=== PATIENT | female | born 1990 | race Two or more races ===

== ENCOUNTER 2019-09-03 07:56 | Inpatient (IN) | payer BC, MEDICAID ==
[2019-09-03] MEDS ORDERED: OXYTOCIN/0.9 % SODIUM CHLORIDE 30 UNIT/500 ML RTUINJ IV PRN ×2 (08:18→18:25)
[2019-09-03] MEDS ORDERED: PENICILLIN G POTASSIUM 5,000,000 UNIT in DEXTROSE 5%-WATER 100 ML IV ONE (08:18)
[2019-09-03] MEDS ORDERED: MISOPROSTOL 0.2 MG TABLET ONE ×2 (08:27→08:39)
[2019-09-03] MEDS ORDERED: PENICILLIN G-K 5 MILLION UNIT VIAL ONE (08:27)
[2019-09-03] MEDS ORDERED: LIDOCAINE 1% INJ-PF (10 MG/ML) 30 ML SDV ONE ×2 (08:27→08:39)
[2019-09-03] MEDS ORDERED: OXYTOCIN 10 UNIT/ML VIAL ONE ×2 (08:27→08:39)
[2019-09-03] MEDS ORDERED: OXYTOCIN/0.9 % SODIUM CHLORIDE 0 UNIT/0 ML RTUINJ ONE (08:27)
[2019-09-03] MEDS ORDERED: OXYTOCIN/0.9 % SODIUM CHLORIDE 30 UNIT/500 ML RTUINJ ONE (08:39)
[2019-09-03] MEDS: RINGERS SOLUTION,LACTATED 1,000 ML IV PRN ×3 (08:40→17:13)
--- NOTE | 2019-09-03 08:43 | Admission Physical ---
Datetime Report Generated by CPN: 09/03/2019 08:43 CURRENT ADMISSION Hx Assessment: The History has been Reviewed and is Current Chief Complaint: Scheduled Induction of Labor Indication for Induction: Maternal Diabetes Indication for Induction- Other: GDM-A2 Admit Impression : Term, Intrauterine ; Induction of Labor Admit Plan: Admit to Unit; Initiate Labor Protocol ALLERGIES Medication Allergies: No Known Allergies (09/03/2019) OBSTETRICAL HISTORY EDC: 09/05/2019 00:00 : 3 Para: 2 Term: 2 : 0 SAB: 0 IAB: 0 Ectopic: 0 Livin Cesareans: 0 VBACs: 0 Multiple Births: 0 PHYSICAL EXAM General: Normal Heart: Normal Lungs: Normal Abdomen: Normal Extremities: Normal Pelvic Type: Adequate Physical Exam Comments: proven to >8lbs Vital Signs: Reviewed; Within Normal Limits VAGINAL EXAM Contraction Comments: x1 MEMBRANES Membranes: Intact FETUS A EGA: 39.5 Monitoring: External US Variability: Moderate 6-25bpm Decelerations: None Presentation: Vertex Admit Comment: 29yo @ 39w5d into L_D this AM secondary to GDM-A2. Pt is O pos, Rubella non-immune, GBS pos with complicated by GDM-A2. Plan is to start pitocin for IOL and PCN for GBS prophylaxis with AROM after second dose of antibiotic. Pt with hx of rapid deliveries. Dr. Hall is the OB construction site crossing guard today and aware of Induction. INFORMED CONSENT Assignment: Alen Hall MD Signature: with User ID: [email or web address] : with User ID: [email or web address]
[2019-09-03 08:55] LABS: APPEARANCE,URINE CLOUDY; BILIRUBIN,URINE NEGATIVE (NEGATIVE); COLOR,URINE YELLOW; GLUCOSE, URINE NEGATIVE (NEGATIVE); KETONES,URINE NEGATIVE (NEGATIVE); LEUKOCYTE ESTERASE,URINE MODERATE (NEGATIVE); NITRITE,URINE NEGATIVE (NEGATIVE); PROTEIN,URINE NEGATIVE (NEGATIVE); URINE SPECIFIC GRAVITY 1.012; UROBILINOGEN,URINE NEGATIVE mg/dL (<2.0)
[2019-09-03 09:19] LABS: ABSOLUTE EOSINOPHILS # (AUTO) 0.3 10^3/uL (0.0-0.6); ABSOLUTE LYMPHOCYTES (AUTO) 1.2 10^3/uL (0.5-4.7); ABSOLUTE MONOCYTES (AUTO) 0.4 10^3/uL (0.1-1.4); ABSOLUTE NEUT (AUTO) 5.2 10^3/uL (1.7-8.2); BASOPHILS % (AUTO) 0.3 % (0-2); EOSINOPHILS % (AUTO) 4.8 % (0-6); HEMATOCRIT 35.2 % (36.0-47.0); HEMOGLOBIN 12.4 g/dL (12.0-15.5); LYMPHOCYTES % (AUTO) 16.9 % (13-45); MEAN CORPUSCULAR HEMOGLOBIN 31.9 pg (27.0-33.4); MEAN CORPUSCULAR HGB CONC 35.1 g/dL (32.0-36.0); MEAN CORPUSCULAR VOLUME 91 fl (80-97); MONOCYTES % (AUTO) 5.9 % (3-13); PLATELET COUNT 239 10^3/uL (150-450); RED BLOOD COUNT 3.88 10^6/uL (3.72-5.28); RED CELL DISTRIBUTION WIDTH 12.4 % (11.5-14.0); SEGMENTED NEUTROPHILS % (AUTO) 72.1 % (42-78); TOTAL CELLS COUNTED % (AUTO) 100 %; WHITE BLOOD COUNT 7.1 10^3/uL (4.0-10.5)
[2019-09-03] MEDS: PENICILLIN G POTASSIUM 2,500,000 UNIT in DEXTROSE 5%-WATER 50 ML IV SCH ×2 (12:30→16:37)
[2019-09-03] MEDS ORDERED: NALBUPHINE HCL INJ 10 MG/1 ML AMPULE ONE (16:27)
[2019-09-03] MEDS ORDERED: PROMETHAZINE HCL INJ 25 MG/1 ML VIAL ONE (16:27)
[2019-09-03] MEDS ORDERED: PROMETHAZINE HCL INJ 25 MG/1 ML VIAL IV ONE (17:00)
[2019-09-03] MEDS ORDERED: NALBUPHINE HCL INJ 10 MG/1 ML AMPULE IV ONE (17:00)
[2019-09-03] MEDS ORDERED: ZOLPIDEM TARTRATE 5 MG TABLET PO PRN (18:25)
[2019-09-03] MEDS ORDERED: PSEUDOEPHEDRINE HCL 30 MG TABLET PO PRN (18:25)
[2019-09-03] MEDS ORDERED: ACETAMINOPHEN WITH CODEINE #3 TABLET PO PRN (18:25)
[2019-09-03] MEDS ORDERED: BENZOCAINE/MENTHOL AEROSOL SPRAY 56 ML TOP PRN (18:25)
[2019-09-03] MEDS ORDERED: PROMETHAZINE HCL INJ 25 MG/1 ML VIAL IV PRN (18:25)
[2019-09-03] MEDS ORDERED: MEASLES,MUMPS&RUBELLA VACC/PF 0.5 ML VIAL SUBCUT PRN (18:25)
[2019-09-03] MEDS ORDERED: DIBUCAINE 1% OINTMENT 28 GM TP PRN (18:25)
[2019-09-03] MEDS ORDERED: DIPH/PERTUSS(ACELL)/TETANUS VAC/PF 0.5 ML SYR (>=10YO) IM PRN (18:25)
[2019-09-03] MEDS ORDERED: PROMETHAZINE HCL 25 MG TABLET PO PRN (18:25)
[2019-09-03] MEDS ORDERED: GLYCERIN/WITCH HAZEL LEAF 1 EACH MED..WIPE TP PRN (18:25)
[2019-09-03] MEDS ORDERED: PROMETHAZINE HCL 25 MG SUPP.RECT PR PRN (18:25)
[2019-09-03] MEDS ORDERED: DIPHENHYDRAMINE HCL 25 MG CAPSULE PO PRN (18:25)
[2019-09-03] MEDS ORDERED: ACETAMINOPHEN 650 MG SUPP.RECT PR PRN (18:25)
[2019-09-03] MEDS ORDERED: MAGNESIUM HYDROXIDE SUSP 30 ML UDCUP PO PRN (18:25)
[2019-09-03] MEDS ORDERED: NA PHOS,M-B/NA PHOS,DI-BA (ADULT) 133 ML ENEMA PR PRN (18:25)
--- NOTE | 2019-09-03 18:46 | Warning Signs in Babies ---
VOD Warning Signs Datetime Report Generated by [facility]: 09/03/2019 18:46 VOD#608 -Warning Signs in Babies: Viewed with Parent(s)/Family (09/03/2019 08:18:Myra Rasmussen RN)
--- NOTE | 2019-09-03 18:48 | Delivery Summary ---
Del Sum A-C Datetime Report Generated by CPN: 09/03/2019 18:47 DELIVERY PERSONNEL DELIVERY PERSONNEL: [id number] Delivery Doctor:: Alen Hall MD Labor and Delivery Nurse:: Myra Rasmussen RNdirectional driller Nurse:: Génesis Lugo RN Nursery Nurse:: Jamila Rea RN Nursery Nurse:: Yasmin Obregon RN Ruling Machine Feeder/SUPERVISOR JEWELRY DEPARTMENT: Karli Roberts, ST MATERNAL INFORMATION Delivery Anesthesia: Epidural Medications After Delivery: Pitocin Bolus-Please Comment; Pitocin 30 Units in 500ml NS/D5W Delivery QBL: 200 Maternal Complications: None LABOR SUMMARY EDC: 09/05/2019 00:00 No. Babies in Womb: 1 Attempted: No Labor Anesthesia: IV Sedation LABOR INFORMATION Reason for Induction: Maternal Diabetes Onset of Labor: 09/03/2019 14:59 Complete Dilatation: 09/03/2019 18:58 Oxytocin: Induction Group B Beta Strep: POSITIVE Antibiotics # of Doses: 3 Antibiotics Time of Last Dose: 1637 Name of Antibiotic Given: penicillin Steroids Given: None Reason Steroids Not Administered: Not Applicable MEMBRANES Membranes Rupture Method: Artificial Rupture of Membranes: 09/03/2019 14:59 Length of Rupture (hr): 3.03 Amniotic Fluid Color: Clear Amniotic Fluid Amount: Small Amniotic Fluid Odor: None STAGES OF LABOR Stage 1 hr: 3 Stage 1 min: 59 Stage 2 hr: 0 Stage 2 min: -57 Stage 3 hr: 0 Stage 3 min: 6 Total Time in Labor hr: 3 Total Time in Labor min: 8 VAGINAL DELIVERY Episiotomy: None Laceration #1: None Laceration Extension #1: N/A Laceration Repair: Not Applicable Sponge Count Correct: N/A Sharps Count Correct: N/A CSECTION DELIVERY Primary Indication: N/A Secondary Indication: N/A CSection Incidence: N/A Labor: N/A Elective: N/A CSection Incision: N/A BABY A INFORMATION Infant Delivery Date/Time: 09/03/2019 18:01 Method of Delivery: Vaginal Nurse Controlled Delivery: Yes Born in Route : No : N/A Forceps: N/A Vacuum Extraction: N/A Shoulder Dystocia : No PRESENTATION/POSITION BABY A Presentation: Cephalic Cephalic Presentation: Vertex Vertex Position: Left Occipital Anterior Breech Presentation: N/A PLACENTA INFORMATION BABY A Placenta Delivery Time : 09/03/2019 18:07 Placenta Method of Delivery: Spontaneous Placenta Status: Delivered SCORES BABY A Heart Rate 1 min: >100 bpm Resp Effort 1 min: Good Cry Reflex Irritability 1 min: Cough or Sneeze or Pulls Away Muscle Tone 1 min: Active Motion Color 1 min: Body [place], Extremities Blue Resuscitation Effort 1 min: Tactile Stimulation SCORE 1 MIN: 9 Heart Rate 5 min: >100 bpm Resp Effort 5 min: Good Cry Reflex Irritability 5 min: Cough or Sneeze or Pulls Away Muscle Tone 5 min: Active Motion Color 5 min: Body [place], Extremities Blue Resuscitation Effort 5 min: Tactile Stimulation SCORE 5 MIN: 9 INFANT INFORMATION BABY A Gestational Age at Delivery: 39.5 Gestational Status: Full Term- 39- 40.6 Weeks Infant Outcome : Liveborn Condition : Stable Infant Sex: Female IDENTIFICATION BABY A Infant Verification Date/Time: 09/03/2019 18:37 ID Band Number: [id number] Mother's Name Verified: Yes RN Verifying : MMobley RN Ttwigg, RN WEIGHT/LENGTH BABY A Infant Birthweight (gm): 3179 Infant Weight (lb): 7 Infant Weight (oz): 0 Length (in): 19.50 Length (cm): 49.53 CORD INFORMATION BABY A No. Cord Vessels: 3 Nuchal Cord : N/A Cord Blood Taken: Yes-For Eval (Mom's Blood Type - or O+) Suction: None ASSESSMENT BABY A Complications: None Physical Findings at Delivery: Within Normal Limits Respirations: Appears Normal Skin to Skin: Yes Skin to Skin Time (min): 20 Store Sales Manager/ALS Called : No Infant Care By: Rk Rea RN Transferred To: Remains with Mother BABY B INFORMATION : N/A SIGNATURES Signature: with User ID: [email or web address]
[2019-09-03] MEDS ORDERED: MISOPROSTOL 0.2 MG TABLET PR ONE (18:54)
[2019-09-03] MEDS ORDERED: IBUPROFEN 800 MG TABLET ONE (19:33)
[2019-09-04] MEDS: FAMOTIDINE 20 MG TABLET PO SCH ×3 (02:49→23:11)
[2019-09-04] MEDS: IBUPROFEN 800 MG TABLET PO SCH ×4 (02:51→23:11)
[2019-09-04 07:06] LABS: HEMATOCRIT 35.1 % (36.0-47.0); HEMOGLOBIN 12.3 g/dL (12.0-15.5); MEAN CORPUSCULAR HGB CONC 35.1 g/dL (32.0-36.0); MEAN CORPUSCULAR VOLUME 91 fl (80-97); PLATELET COUNT 249 10^3/uL (150-450); RED BLOOD COUNT 3.85 10^6/uL (3.72-5.28); RED CELL DISTRIBUTION WIDTH 12.4 % (11.5-14.0); WHITE BLOOD COUNT 13.4 10^3/uL (4.0-10.5)
[2019-09-04] MEDS: PRENATAL VITAMIN W DHA CAPSULE PO SCH (09:16)
[2019-09-04] MEDS: FERROUS SULFATE 325 MG TABLET PO SCH ×2 (09:16→17:16)
[2019-09-04] MEDS: SENNOSIDES/DOCUSATE 8.6-50 MG 1 EACH TABLET PO SCH (09:16)
[2019-09-04] MEDS: DOCUSATE SODIUM 100 MG CAPSULE PO SCH ×2 (09:16→17:16)
--- NOTE | 2019-09-04 10:08 | PDOC PROGRESS REPORT ---
Subjective-OB Progress Note for:: 09/04/19 Subjective: Pt doing well, resting, reports light bleeding, reg diet with +flatus and is voiding without difficulty. Physical Exam (OB) Vital Signs: Temp Pulse Resp BP Pulse Ox 97.7 F 65 16 113/73 100 09/04/19 07:39 09/04/19 07:39 09/04/19 07:39 09/04/19 07:39 09/04/19 07:39 Intake & Output 09/03/19 09/04/19 09/05/19 06:59 06:59 06:59 Intake Total 1069 480 Output Total 500 Balance 569 480 Weight 83.4 kg - PIH/Pre-Eclampsia DTR's: 1 + Clonus: Negative Headache: Absent Epigastric Pain: No Visual Changes: No - Lochia Lochia Amount: Moderate 25-50 ml Lochia Color: Rubra/Red - Abdomen Description: Soft, Round Hernia Present: No Fundal Description: Firm, Midline Fundal Height: u/u - u/2 Objective-Diagnostic Laboratory: 09/04/19 06:42 09/03/19 08:47 09/04/19 06:42 WBC 13.4 H RBC 3.85 Hgb 12.3 Hct 35.1 L MCV 91 MCH 32.0 MCHC 35.1 RDW 12.4 Plt Count 249 Assessment and Plan(PN) - Assessment and Plan (1) (normal spontaneous vaginal delivery) Is this a current diagnosis for this admission?: Yes (2) Encounter for induction of labor Is this a current diagnosis for this admission?: Yes (3) GDM, class A2 Is this a current diagnosis for this admission?: Yes - Time Spent with Patient Time with patient: Less than 15 minutes Medications reviewed and adjusted accordingly: Yes - Disposition Anticipated Discharge: Home Within: within 24 hours
[2019-09-04] MEDS: PENICILLIN G POTASSIUM 2,500,000 UNIT in DEXTROSE 5%-WATER 50 ML IV SCH (10:09)
[2019-09-05] MEDS: IBUPROFEN 800 MG TABLET PO SCH ×2 (05:32→13:28)
[2019-09-05 08:21] VITALS: BP 116/80
[2019-09-05] MEDS: DOCUSATE SODIUM 100 MG CAPSULE PO SCH (09:53)
[2019-09-05] MEDS: PRENATAL VITAMIN W DHA CAPSULE PO SCH (09:53)
[2019-09-05] MEDS: FAMOTIDINE 20 MG TABLET PO SCH (09:53)
[2019-09-05] MEDS: SENNOSIDES/DOCUSATE 8.6-50 MG 1 EACH TABLET PO SCH (09:53)
[2019-09-05] MEDS: FERROUS SULFATE 325 MG TABLET PO SCH (09:53)
[2019-09-05] MEDS ORDERED: DIPH/PERTUSS(ACELL)/TETANUS VAC/PF 0.5 ML SYR (>=10YO) IM PRN (10:00)
[2019-09-05] MEDS ORDERED: PROMETHAZINE HCL INJ 25 MG/1 ML VIAL IV PRN (10:00)
[2019-09-05] MEDS ORDERED: MEASLES,MUMPS&RUBELLA VACC/PF 0.5 ML VIAL SUBCUT PRN (10:00)
--- NOTE | 2019-09-05 11:32 | PDOC DISCHARGE SUMMARY ---
Impression - Admit/DC Date/PCP Admission Date/Primary Care Provider: 09/03/19 07:56 YOVANY MULLIGAN MD Discharge Date: 09/05/19 - Discharge Diagnosis (1) Encounter for induction of labor Is this a current diagnosis for this admission?: Yes (2) GDM, class A2 Is this a current diagnosis for this admission?: Yes (3) (normal spontaneous vaginal delivery) Is this a current diagnosis for this admission?: Yes - Additional Information Discharge Diet: Regular Discharge Activity: Balance Activity w/Rest, Pelvic Rest Referrals: [facility] [Provider Group] (Please call and schedule a 4 week f/u at [facility].) Prescriptions: Ibuprofen [Motrin 800 mg Tablet] 800 mg PO Q8HP PRN #90 tablet PRN Reason: Vit/Dha [ Multi + Dha Capsule] 1 cap PO DAILY #90 capsule Home Medications: Ibuprofen [Motrin 800 mg Tablet] 800 mg PO Q8HP PRN #90 tablet 09/05/19 Vit/Dha [ Multi + Dha Capsule] 1 cap PO DAILY #90 capsule 09/05/19 Results Laboratory Results: WBC 13.4 10^3/uL (4.0-10.5) H 09/04/19 06:42 RBC 3.85 10^6/uL (3.72-5.28) 09/04/19 06:42 Hgb 12.3 g/dL (12.0-15.5) 09/04/19 06:42 Hct 35.1 % (36.0-47.0) L 09/04/19 06:42 MCV 91 fl (80-97) 09/04/19 06:42 MCH 32.0 pg (27.0-33.4) 09/04/19 06:42 MCHC 35.1 g/dL (32.0-36.0) 09/04/19 06:42 RDW 12.4 % (11.5-14.0) 09/04/19 06:42 Plt Count 249 10^3/uL (150-450) 09/04/19 06:42 Lymph % (Auto) 16.9 % (13-45) 09/03/19 08:47 [place] % (Auto) 5.9 % (3-13) 09/03/19 08:47 Eos % (Auto) 4.8 % (0-6) 09/03/19 08:47 Baso % (Auto) 0.3 % (0-2) 09/03/19 08:47 Absolute Neuts (auto) 5.2 10^3/uL (1.7-8.2) 09/03/19 08:47 Absolute Lymphs (auto) 1.2 10^3/uL (0.5-4.7) 09/03/19 08:47 Absolute Monos (auto) 0.4 10^3/uL (0.1-1.4) 09/03/19 08:47 Absolute Eos (auto) 0.3 10^3/uL (0.0-0.6) 09/03/19 08:47 Absolute Basos (auto) 0.0 10^3/uL (0.0-0.2) 09/03/19 08:47 Seg Neutrophils % 72.1 % (42-78) 09/03/19 08:47 Glucose 91 mg/dL (75-110) 09/03/19 08:47 Urine Color YELLOW 09/03/19 08:10 Urine Appearance CLOUDY 09/03/19 08:10 Urine pH 6.0 (5.0-9.0) 09/03/19 08:10 Ur Specific [place] 1.012 09/03/19 08:10 Urine Protein NEGATIVE mg/dL (NEGATIVE) 09/03/19 08:10 Urine Glucose (UA) NEGATIVE mg/dL (NEGATIVE) 09/03/19 08:10 Urine Ketones NEGATIVE mg/dL (NEGATIVE) 09/03/19 08:10 Urine Blood NEGATIVE (NEGATIVE) 09/03/19 08:10 Urine Nitrite NEGATIVE (NEGATIVE) 09/03/19 08:10 Urine Bilirubin NEGATIVE (NEGATIVE) 09/03/19 08:10 Urine Urobilinogen NEGATIVE mg/dL (<2.0) 09/03/19 08:10 Ur Leukocyte Esterase MODERATE (NEGATIVE) H 09/03/19 08:10 Urine Ascorbic Acid NEGATIVE (NEGATIVE) 09/03/19 08:10 RPR NONREACTIVE (NONREACTIVE) 09/03/19 08:47 Blood Type O POSITIVE 09/03/19 08:47 Antibody Screen NEGATIVE 09/03/19 08:47 Plan Plan of Treatment: follow up in 4 weeks at [facility] for post check
== END 2019-09-05 13:50 | disposition home or self-care (01) | DRG 807 ==
LOC: LR 07:56 → 2S 20:34
PROVIDERS: ADMIT Obstetrics & Gynecology Gynecology; ATTEND Obstetrics & Gynecology Gynecology
PROC: 10E0XZZ Delivery of Products of Conception, External Approach (ICD-10-PCS; principal; 2019-09-03)
PROC: 3E0234Z Introduction of Serum, Toxoid and Vaccine into Muscle, Percutaneous Approach (ICD-10-PCS; 2019-09-05)
DX: O24.429 Gestational diabetes mellitus in childbirth, unspecified control (principal); O99.824 Streptococcus B carrier state complicating childbirth; Z37.0 Single live birth; Z3A.39 39 weeks gestation of pregnancy; Z23 Encounter for immunization
CPT/HCPCS: 36415; 81005; 82947; 85025; 85027; 86592; 86850; 86900; 86901; 90707; J2300; J2540; J2550; J2590; J3490; J7060